=== PATIENT | male | born 1995 | race Caucasian/White ===

== ENCOUNTER 2021-09-21 09:54 | Emergency (ER) | payer OTHER, SELFPAY ==
[2021-09-21 09:59] VITALS: BP 136/80; PULSE 57; RESP 16; TEMP 36.2; O2SAT 98
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
[2021-09-21] MEDS: DACRIOSE EYE IRRIGATION 118 ML BOTTLE 200 ML LEFT EYE (10:20)
[2021-09-21] MEDS: TETRACAINE HCL 0.5% OPHTH SOLN 4 ML BTL 1 DROP LEFT EYE (10:20)
[2021-09-21] MEDS: FLUORESCEIN SOD 1 MG/STRIP EACH EYE (10:25)
== END 2021-09-21 10:40 | disposition home or self-care (01) ==
PROVIDERS: Emergency Provider Emergency Medicine
DX: T15.82XA Foreign body in other and multiple parts of external eye, left eye, initial encounter (principal)
CPT/HCPCS: 65220; 99283; A9270

== ENCOUNTER 2024-10-03 15:23 | Emergency (ER) | payer BC, SELFPAY ==
--- OUTSIDE RECORDS SUMMARY | 2024-10-03 15:25 | XMS_ITS | Clinical Summary ---
Author Organization [facility] Address [address] [place] [address] Care Team Providers Care Clinical Informatics Educator Name Role Phone Amira Ko MD Primary Care Provider [phone] Source Comments [facility],non-owned Affiliates and Associated Physician Practices is amultiple site organization consisting of ambulatory clinics and hospital sitesin [place], [place], [place] and [place]. This disclosure is being madepursuant to the Care Everywhere program and may not contain all information available regarding this patient. 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 Gender Identity Not on file Sexual Orientation Not on file Plan of Treatment Health Maintenance Due Date Last Done Comments HIV SCREENING 2008 HEPATITIS C SCREENING 12/08/2011 DTAP/TDAP/TD VACCINES (1 - Tdap) 2012 HEPATITIS B VACCINE (1 of 3 - 19+ 3-dose series) 2012 HPV VACCINE (1 - 3-dose SCDM series) 2020 COVID-19 VACCINE (1 - 2023-2 5 season) 2023 DEPRESSION SCREENING 03/20/2024 INFLUENZA VACCINE (#1) 2024 ZOSTER VACCINE (1 of 2) 12/13/2043 HIB VACCINE Aged Out No longer eligi ble based on patient's age to complete this topic MENINGOCOCCAL (Group B) VACC INE SHARED DECISION-MAKING Aged Out No longer eligibl e based on patient's age to complete this topic MENINGOCOCCAL GROUPS A/C/Y/W VACCINE Aged Out No longer eligible b ased on patient's age to complete this topic PNEUMOCOCCAL VACCINE Aged Out No long er eligible based on patient's age to complete this topic Care Teams Clinical Informatics Educator Relationship Specialty Start Date End Date Amira Ko MD [address] [place] [address] PCP - General 05/13/09
--- OUTSIDE RECORDS SUMMARY | 2024-10-03 15:25 | XMS_ITS | Data Portability ---
Author Organization [facility] MERIArlin Mota Address [address] [place] [address] Care Team Providers Care Pharmacy Picking Technician Name Role Phone MARINO MARTIN Primary Care Provider [phone] Assessment No assessment recorded. Plan of Treatment Reminders Order Date Submit Date Provider Last Modified By Organization Details Last Modified Time Details Appointments None recorded . Lab culture, stool 2016 017 [email or web address] [facility], [address] [place] [address], [address], [place], [address], 7 12:31:41 CMP, serum or plasma 2016 017 MALLORY [facility], [address], [address], [place], [address], 7 08:25:39 CBC 2016 017 MALLORY [facility], [address], [address], [place], [address], 7 08:25:38 lipid panel, serum 2016 017 MALLORY [facility], [address], [address], [place], [address], 7 08:25:39 amylase + lipase, serum 2016 017 MALLORY [facility], [address], [address], [place], [address], 7 08:25:40 Referral None recorded . Procedures None recorded . Surgeries None recorded . Imaging MRI, knee, w/o contrast 2016 017 [facility] ([facility]), [address] [place], [address], 7 17:53:15 XR, knee 2016 017 [facility] ([facility]), [address] [place], [address], 7 17:48:19 Medication Orders ketorola c 60 mg/2 mL intramus cular solution 2016 017 [email or web address] Not available 16:44:26 Flagyl 500 mg tablet 2016 017 [email or web address] [facility], [facility] [place], [address], 7 16:13:14 diclofen ac sodium 75 mg tablet,d elayed release 2016 017 [email or web address] [facility], [facility] [place], [address], 7 12:19:05 Patient TargetsNo targets recorded. Patient Instructions Encounter Date Encounter Id Patient Instructions Last Modified By Organization Details Last Modified Time 06/13/2016 [id number] Quitting Tobacco : Care Instructions [email or web address] Not available 06/13/2016 17:18:49 advised on etoh jnanney Not available 06/13/2016 17:16:33 01/04/2017 [id number] When You Want to Lose Weight: Care Instructions [email or web address] Not available 01/04/2017 16:23:41 Reason for Referral None Reported. Results Created Date Observation Date Name Description Value Unit Range Abnormal Flag Note LastModifiedBy Organization Detail LastModifiedTime 06/09/19 17 06/09/2016 CBC WBC 8.9 x10e3 /uL 3.4-10 .8 Not Available [facility] ([facility]) [address], [place], [address], 06/09/2016 08:25:38 06/09/19 17 06/09/2016 CBC RBC 5.14 x10e6 /uL 4.14-5 .80 Not Available [facility] ([facility]) [address] [place], [address], 06/09/2016 08:25:38 06/09/19 17 06/09/2016 CBC hemoglobin 14.2 g/dL 12.6-1 7.7 Not Available [facility] ([facility]) [address] [place], [address], 06/09/2016 08:25:38 06/09/19 17 06/09/2016 CBC hematocrit 42.0 % 37.5-5 1.0 Not Available [facility] ([facility]) [address] [place], [address], 06/09/2016 08:25:38 06/09/19 17 06/09/2016 CBC MCV 82 fL 79-97 Not Available [facility] ([facility]) [address] [place], [address], 06/09/2016 08:25:38 06/09/19 17 06/09/2016 CBC MCH 27.6 pg 26.6-3 3.0 Not Available [facility] ([facility]) [address] [place], [address], 06/09/2016 08:25:38 06/09/19 17 06/09/2016 CBC MCHC 33.8 g/dL 31.5-3 5.7 Not Available [facility] ([facility]) [address] [place], [address], 06/09/2016 08:25:38 06/09/19 17 06/09/2016 CBC RDW 14.2 % 12.3-1 5.4 Not Available [facility] ([facility]) [address] [place], [address], 06/09/2016 08:25:38 06/09/19 17 06/09/2016 CBC platelets 221 x10e3 /uL 150-37 9 Not Available [facility] ([facility]) [address] [place], [address], 06/09/2016 08:25:38 06/09/19 17 06/09/2016 CBC neutrophils 63 % Not Avai lable [facility] ([facility]) [address] [place], [address], 06/09/2016 08:25:38 06/09/19 17 06/09/2016 CBC lymphs 25 % Not Available [facility] ([facility]) [address] [place], [address], 06/09/2016 08:25:38 06/09/19 17 06/09/2016 CBC monocytes 6 % Not Availa ble [facility] ([facility]) [address] [place], [address], 06/09/2016 08:25:38 06/09/19 17 06/09/2016 CBC eos 6 % Not Available [facility] ([facility]) [address] [place], [address], 06/09/2016 08:25:38 06/09/19 17 06/09/2016 CBC basos 0 % Not Available [facility] ([facility]) [address] [place], [address], 06/09/2016 08:25:38 06/09/19 17 06/09/2016 CBC immature cells PT ESCORT Not Available [facility] ([facility]) [address] [place], [address], 06/09/2016 08:25:38 06/09/19 17 06/09/2016 CBC neutrophils (absolute) 5.5 x10e3 /uL 1.4-7. 0 Not Available [facility] ([facility]) [address] [facility] [place], [address], 06/09/2016 08:25:38 06/09/19 17 06/09/2016 CBC lymphs (absolute) 2.2 x10e3 /uL 0.7-3. 1 Not Available [facility] ([facility]) [address], [place], [address], 06/09/2016 08:25:38 06/09/19 17 06/09/2016 CBC monocytes(ab solute) 0.6 x10e3 /uL 0.1-0. 9 Not Available [facility] ([facility]) [address], [place], [address], 06/09/2016 08:25:38 06/09/19 17 06/09/2016 CBC eos (absolute) 0.6 x10e3 /uL 0.0-0. 4 above high normal Not Available [facility] ([facility]) [address], [place], [address], 06/09/2016 08:25:38 06/09/19 17 06/09/2016 CBC baso (absolute) 0.0 x10e3 /uL 0.0-0. 2 Not Available [facility] ([facility]) [address], [place], [address], 06/09/2016 08:25:38 06/09/19 17 06/09/2016 CBC immature granulocytes 0 % Not Available [facility] ([facility]) [address], [place], [address], 06/09/2016 08:25:38 06/09/19 17 06/09/2016 CBC immature grans (abs) 0.0 x10e3 /uL 0.0-0. 1 Not Available [facility] ([facility]) [address], [place], [address], 06/09/2016 08:25:38 06/09/19 17 06/09/2016 CBC NRBC PT ESCORT Not Available [facility] ([facility]) [address] [place], [address], 06/09/2016 08:25:38 06/09/19 17 06/09/2016 CBC hematology comments: PT ESCORT Not Available [facility] ([facility]) [address] [place], [address], 06/09/2016 08:25:38 06/09/19 17 06/09/2016 CMP, serum or plasm a glucose, serum 88 mg/dL 65-99 Not Available [facility] ([facility]) [address] [place], [address], 06/09/2016 08:25:39 06/09/19 17 06/09/2016 CMP, serum or plasm a BUN 14 mg/dL 6-20 Not Available [facility] ([facility]) [address] [place], [address], 06/09/2016 08:25:39 06/09/19 17 06/09/2016 CMP, serum or plasm a creatinine, serum 0.69 mg/dL 0.76-1 .27 below low normal Not Available [facility] ([facility]) [address] [place], [address], 06/09/2016 08:25:39 06/09/19 17 06/09/2016 CMP, serum or plasm a eGFR if nonafricn AM 135 mL/mi n/1.7 3 >59 Not Available [facility] ([facility]) [address] [place], [address], 06/09/2016 08:25:39 06/09/19 17 06/09/2016 CMP, serum or plasm a eGFR if africn AM 156 mL/mi n/1.7 3 >59 Not Available [facility] ([facility]) [address] [place], [address], 06/09/2016 08:25:39 06/09/19 17 06/09/2016 CMP, serum or plasm a BUN/creatini ne ratio 20 8-19 above high normal Not Available [facility] ([facility]) [address] [place], [address], 06/09/2016 08:25:39 06/09/19 17 06/09/2016 CMP, serum or plasm a sodium, serum 140 mmol/ L 134-14 4 Not Available [facility] ([facility]) [address] [place], [address], 06/09/2016 08:25:39 06/09/19 17 06/09/2016 CMP, serum or plasm a potassium, serum 3.9 mmol/ L 3.5-5. 2 Not Available [facility] ([facility]) [address] [place], [address], 06/09/2016 08:25:39 06/09/19 17 06/09/2016 CMP, serum or plasm a chloride, serum 98 mmol/ L 96-106 Not Available [facility] ([facility]) [address] [place], [address], 06/09/2016 08:25:39 06/09/19 17 06/09/2016 CMP, serum or plasm a carbon dioxide, total 25 mmol/ L 18-29 Not Available [facility] ([facility]) [address] [place], [address], 06/09/2016 08:25:39 06/09/19 17 06/09/2016 CMP, serum or plasm a calcium, serum 9.5 mg/dL 8.7-10 .2 Not Available [facility] ([facility]) [address] [place], [address], 06/09/2016 08:25:39 06/09/19 17 06/09/2016 CMP, serum or plasm a protein, total, serum 7.5 g/dL 6.0-8. 5 Not Available [facility] ([facility]) [address] [place], [address], 06/09/2016 08:25:39 06/09/19 17 06/09/2016 CMP, serum or plasm a albumin, serum 4.6 g/dL 3.5-5. 5 Not Available [facility] ([facility]) [address], [place], [address], 06/09/2016 08:25:39 06/09/19 17 06/09/2016 CMP, serum or plasm a globulin, total 2.9 g/dL 1.5-4. 5 Not Available [facility] ([facility]) [address] [place], [address], 06/09/2016 08:25:39 06/09/19 17 06/09/2016 CMP, serum or plasm a A/G ratio 1.6 1.2-2. 2 PLE ASE NOTE REFER ENCE RAINE ENAMORADO E Not Available [facility] ([facility]) [address] [place], [address], 06/09/2016 08:25:39 06/09/19 17 06/09/2016 CMP, serum or plasm a bilirubin, total 0.9 mg/dL 0.0-1. 2 Not Available [facility] ([facility]) [address] [place], [address], 06/09/2016 08:25:39 06/09/19 17 06/09/2016 CMP, serum or plasm a alkaline phosphatase, S 76 IU/L 39-117 Not Available [facility] ([facility]) [address] [place], [address], 06/09/2016 08:25:39 06/09/19 17 06/09/2016 CMP, serum or plasm a AST (SGOT) 45 IU/L 0-40 above high normal Not Available [facility] ([facility]) [address] [place], [address], 06/09/2016 08:25:39 06/09/19 17 06/09/2016 CMP, serum or plasm a ALT (SGPT) 103 IU/L 0-44 above high normal Not Available [facility] ([facility]) [address] [place], [address], 06/09/2016 08:25:39 06/09/19 17 06/09/2016 lipid panel , serum cholesterol, total 217 mg/dL 100-19 9 above high normal Not Available [facility] ([facility]) [address] [place], [address], 06/09/2016 08:25:39 06/09/19 17 06/09/2016 lipid panel , serum triglyceride s 206 mg/dL 0-149 above high normal Not Available [facility] ([facility]) [address] [place], [address], 06/09/2016 08:25:39 06/09/19 17 06/09/2016 lipid panel , serum HDL cholesterol 47 mg/dL >39 Not Available [facility] ([facility]) [address], [place], [address], 06/09/2016 08:25:39 06/09/19 17 06/09/2016 lipid panel , serum VLDL cholesterol cheryl 41 mg/dL 5-40 above high normal Not Available [facility] ([facility]) [address] [place], [address], 06/09/2016 08:25:39 06/09/19 17 06/09/2016 lipid panel , serum LDL cholesterol calc 129 mg/dL 0-99 above high normal Not Available [facility] ([facility]) [address] [place], [address], 06/09/2016 08:25:39 06/09/19 17 06/09/2016 lipid panel , serum comment: PT ESCORT Not Available [facility] ([facility]) [address] [place], [address], 06/09/2016 08:25:39 06/09/19 17 06/09/2016 lipid panel , serum LDL/HDL ratio 2.7 ratio _unit s 0.0-3. 6 LDL/H DL RATIO MEN WOMEN 1/2 AVG.R ISK 1.0 1.5 AVG.R ISK 3.6 3.2 2X AVG.R ISK 6.2 5.0 3X AVG.R ISK 8.0 6.1 Not Available [facility] ([facility]) [address], [place], [address], 06/09/2016 08:25:39 06/09/19 17 06/09/2016 amyla se + lipas e, serum amylase, serum 35 U/L 31-124 Not Available [facility] ([facility]) [address], [place], [address], 06/09/2016 08:25:40 06/09/19 17 06/09/2016 amyla se + lipas e, serum lipase, serum 31 U/L 0-59 Not Available [facility] ([facility]) [address], [place], [address], 06/09/2016 08:25:40 06/09/19 17 06/09/2016 cardi ovasc ular asses sment panel , serum interpretati on NOTE SUPPL EMENT REPOR T IS AVAIL ABLE. Not Available [facility] ([facility]) [address], [place], [address], 06/09/2016 08:25:40 06/09/19 17 06/09/2016 cardi ovasc ular asses sment panel , serum pdf image . Not Available [facility] ([facility]) [address], [place], [address], 06/09/2016 08:25:40 06/23/19 17 XR, knee No observ ation record ed. [email or web address] Not Available 08/2016 17:01:59 Result Notes None recorded. Problems Name Problem SNOMED Code Status Onset Date Resolution Date Notes Provider Name and Address Organization Details Recorded Time Painful mouth 576153568 Active Anabel Partida MA [facility], [facility] 6 10:45:22 Problem Notes None recorded. Medical Equipment None Reported. Allergies No known drug allergies Medications Name Sig Start Date Stop Date Status Note LastModified by Organization Details LastModified Time Keflex 500 mg capsule Take 1 capsule every 8 hours by oral route for 10 days. 2014 active Not Available Not Available Not Avai lable Flagyl 500 mg tablet Take 1 tablet every 8 hours by oral route for 10 days. 01/04 completed Not Available Not Available Not Available gabapentin 300 mg capsule Take 1 capsule 3 times a day by oral route for 30 days. 2014 active Not Available Not Available Not Avai lable diclofenac sodium 75 mg tablet,jessica yed release Take 1 tablet twice a day by oral route for 30 days. 08/30 completed Not Available Not Available Not Available ketorolac 60 mg/2 mL intramuscul ar solution Inject 2 mL by intramusc ular route. 2016 active Not Available Not Available Not Avai lable Diflucan 200 mg tablet Take 1 tablet every 72 hours by oral route as directed. 2018 active Not Available Not Available Not Avai lable Vitals Date Recorded Body weight Body height Body mass index (BMI) Oxygen saturation Oxygen saturation in Arterial blood by Pulse oximetry Heart rate Systolic And Diastolic Provider Name and Address Organization Details Last Updated DateTime 7 612788. 72 g 187.96 cm 54.4 kg/m2 97 % 97 % 66 /min 132/86 mm[Hg] Anabel Partida MA [facility] 7 14:17:47 Date Recorded Body height Body weight Body mass index (BMI) Oxygen saturation Oxygen saturation in Arterial blood by Pulse oximetry Heart rate Systolic And Diastolic Provider Name and Address Organization Details Last Updated DateTime 7 187.96 cm 856400. 61 g 54.5 kg/m2 98 % 98 % 112 /min 138/90 mm[Hg] Carley Trinh MA [facility] 7 16:51:38 Date Recorded Body height Body mass index (BMI) Body weight Oxygen saturation Oxygen saturation in Arterial blood by Pulse oximetry Heart rate Systolic And Diastolic Provider Name and Address Organization Details Last Updated DateTime 187.96 cm 55 kg/m2 532462. 28 g 97 % 97 % 79 /min 124/68 mm[Hg] Marino Martin PA-C Attn: Shanelle krishnan,[address] , [place], [address], [facility] 7 12:18:23 Date Recorded Body height Body mass index (BMI) Body weight Oxygen saturation Oxygen saturation in Arterial blood by Pulse oximetry Heart rate Systolic And Diastolic Provider Name and Address Organization Details Last Updated DateTime 187.96 cm 55.1 kg/m2 001921. 13 g 97 % 97 % 78 /min 120/80 mm[Hg] Sigrid Chacon MA [facility] 7 16:15:09 Social History None recorded. Functional Status None recorded. Mental Status None recorded. Family History Nothing Reported. Medical History No medical history recorded. Past Encounters Encounter ID Performer Location Encounter Start Date Encounter Closed Date Diagnosis/Indication Diagnosis SNOMED-CT Code Diagnosis ICD10 Code Diagnosis Note [id number] Marino Martin PA-C [facility] [address] [place] [address] 04/11/2014 10:53:00 04/11/2014 11:39:50 Painful mouth [id number] Marino Martin PA-C [facility] [address] [place] [address] 07/28/2015 10:41:27 08/21/2015 11:25:27 [id number] JERALD Danielle [address] [place] [address] 06/07/2016 14:07:51 06/07/2016 14:44:30 Liver enzymes level above reference range 407094717 R74.8 [id number] JERALD Danielle [address] [place] [address] 06/13/2016 16:44:36 06/13/2016 17:48:19 Pain in left knee 3391689911 26289 M25.562 Painful mouth 035015316 K13.79 [id number] Christian Canseco MD [facility] [address] [place] [address] 08/30/2016 11:33:24 08/30/2016 14:53:31 Acute diarrhea 576065059 R19.7 [id number] Christian Canseco MD [facility] [address] [place] [address] 01/04/2017 15:43:04 01/04/2017 17:53:14 Pain in left knee 9198676494 91638 M25.562 Health Concerns Section Related Observation LastModified by Organization Detai ls LastModified Time None Recorded Concern Status LastModified by Organization Details LastModified Time None Recorded Advance Directives Directive None Recorded Payers Insurance Date Sequence Insurance Name Policy Number Policy Rojas Covered Member ID Rojas Member ID Guarantor Name 01/03/2017 1 [place] [facility] [place] [id number] [facility]2017 [facility] PLAN [facility] Notes Date Note Type Note Provider Name and Address Organization Details Recorded Time 06/07/2016 text/html went to ER for something and found out his liver enzymes were high. Marino Martin PA-C Attn: Accounting,[address] [facility], [place], [address], [facility] 06/07/2016 14:32:55 06/13/2016 text/html blood work and knee pain Marino Martin PA-C Attn: Accounting,[address] [place], [address], [facility] 06/13/2016 17:19:31 08/30/2016 text/html no nausea vomiting. every time he eats. 45 minutes after eating. no food relation. just got back from [place]. started a few days later. [facility] Marino Martin PA-C Attn: Accounting,[address] [place], [address], [facility] 08/30/2016 12:37:10 01/04/2017 text/html knee pain lft knee worse. has not lost weight. Marino Martin PA-C Attn: Accounting,[address] [facility], [place], [address], [facility] 01/04/2017 16:25:26
--- OUTSIDE RECORDS SUMMARY | 2024-10-03 15:25 | XMS_ITS | Data Portability ---
Author Organization [place] [facility] Address [address] [facility] [place] [address] Assessment Encounter Date Assessment Date Assessment LastModified by Organization Details LastModified Time 07/14/2011 07/14/2011 injury 5th finger . official xray reported normal no FX gmalur Not available 07/18/2011 00:37:38 10/24/2011 10/24/2011 Adoloscent with morbid Obesity says he is doing daily exercise, adv to moniter is intake. gmalur Not available 10/25/2011 00:09:42 Plan of Treatment Reminders Order Date Submit Date Provider Last Modified By Organization Details Last Modified Time Details Appointments None recorded. Lab urinalysis, dipstick [address], [place], [address], 3 03:30:32 hemoglobin, fingerstick 2011 [address], [place], [address], 3 03:30:34 lipid panel 2011 012 MALLORY Not available 3 03:30:33 glucose, serum 2011 012 MALLORY Not available 3 03:30:33 hgb A1C w/ glucose 2011 012 MALLORY Not available 3 03:30:34 ALT (SGPT) 2011 012 MALLORY Not available 3 03:30:34 AST (SGOT) 2011 012 MALLORY Not available 3 03:30:34 Referral None recorded. Procedures None recorded. Surgeries None recorded. Imaging None recorded. Medication Orders None recorded. Patient TargetsNo targets recorded. Patient Instructions Encounter Date Encounter Id Patient Instructions Last Modified By Organization Details Last Modified Time 07/14/2011 [id number] use splint prn ,ice and ibuprofen gmalur Not available 07/18/2011 00:37:38 10/24/2011 [id number] I am concerned about his wt. gmalur Not available 10/25/2011 00:20:52 Reason for Referral None Reported. Results Created Date Observation Date Name Description Value Unit Range Abnormal Flag Note LastModifiedBy Organization Detail LastModifiedTime 10/24/19 12 10/24/2011 hemog gilmarmichelet , joaohadley rstic k HGB 13.5 Not Available [facility] [address] [facility] [address] [address], [place], [address], 10/24/2011 18:02:08 10/24/19 12 10/24/2011 urina lysis , dipst ick Blood negati ve Not Available [facility] [address] [facility] [address] [address], [place], [address], 10/24/2011 17:58:34 10/24/19 12 10/25/2011 lipid panel cholesterol, total 227 mg/dL 125-17 0 high Not Available [employer] [address] [address] [place], [address], 10/25/2011 10:00:10 10/24/19 12 10/25/2011 lipid panel HDL cholesterol 44 mg/dL 31-65 normal Not Available [facility] [employer] [facility] [address] [place], [address], 10/25/2011 10:00:10 10/24/19 12 10/25/2011 lipid panel triglyceride s 202 mg/dL 38-152 high Not Available [employer] [address] [place], [address], 10/25/2011 10:00:10 10/24/19 12 10/25/2011 lipid panel LDL-choleste rol 143 mg/dL _(cheryl c) <110 high simran able range <100 mg/dL for patie nts with CHD or diabe francoise and <70 mg/dL for diabe tic patie nts with known heart disea se. Not Available [facility] [address] [address] [place], [address], 10/25/2011 10:00:10 10/24/19 12 10/25/2011 lipid panel chol/HDLC ratio 5.2 (calc ) < or = 5.0 high Not Available [facility] [address] [address] [place], [address], 10/25/2011 10:00:10 10/24/19 12 10/25/2011 lipid panel non-HDL cholesterol 183 mg/dL _(cheryl c) targe t for non-H DL kristy stero l IS 30 mg/dL highe r than LDL kristy stero l targe t. Not Available [facility] [address] [address] [place], [address], 10/25/2011 10:00:10 10/24/19 12 10/25/2011 gluco se, plasm a glucose, random (P) 87 mg/dL <140 normal Not Available [address], [address], 10/25/2011 10:00:11 10/24/19 12 10/25/2011 hemog lobin A1C hemoglobin A1C 5.5 %_of_ total _HGB <5.7 normal decre ased risk of diabe francoise <5.7 decre ased risk of diabe francoise 5.7-6 .0 incre ased risk of diabe francoise 6.1-6 .4 highe r risk of diabe francoise > or = 6.5 consi stent with diabe francoise [facility] in diabe francoise-2 010. diabe francoise care, 33(sanchez pp 1): S1-S6 1,201 0. Not Available [facility] [address] [address] [place], [address], 10/25/2011 10:00:11 10/24/19 12 10/25/2011 ALT (SGPT ) ALT 68 U/L 8-46 high Not Available [facility] [address] [place], [address], 10/25/2011 10:00:12 10/24/19 12 10/25/2011 AST (SGOT ) AST 34 U/L 12-32 high Not Available [facility] [address] [place], [address], 10/25/2011 10:00:12 07/16/19 12 07/13/2011 imagi ng/di agnos tic resul t No observ ation record ed. MALLORY Not Available 2012 03:29:28 Result Notes None recorded. Problems Name Problem SNOMED Code Status Onset Date Resolution Date Notes Provider Name and Address Organization Details Recorded Time Contusion of finger [id number] Active Not Available [facility] 3 03:02:31 Obesity [id number] Active 010 Not Available [facility] 3 03:02:31 Problem Notes None recorded. Medical Equipment None Reported. Allergies No known drug allergies Medications Not known to be on any medication Vitals Date Recorded Body height Body weight Body mass index (BMI) Respiratory rate Body temperature Heart rate Systolic And Diastolic Provider Name and Address Organization Details Last Updated DateTime 2 182.88 cm 898233. 46192 g 46.5 kg/m2 16 /min 98.5 [degF] 84 /min 128/78 mm[Hg] KENDELL Martinez [address] [place] [address], [id number] [place] [address] [facility], 2 14:46:58 Date Recorded Body height Body weight Body mass index (BMI) Provider Name and Address Organization Details Last Updated DateTime 10/23/2009 181.61 cm 277568.711 g 41.3 kg/m2 Estephania Petersen [facility], 07/23/2013 14:01:58 Date Recorded Body height Body weight Body mass index (BMI) Respiratory rate Heart rate Systolic And Diastolic Provider Name and Address Organization Details Last Updated DateTime 2 182.88 cm 880961. 41129 g 46.9 kg/m2 20 /min 74 /min 120/78 mm[Hg] Imani Montano [facility], 2 17:50:26 Social History Question Answer Notes LastModified by Organizat ion Details LastModified Time Tobacco Smoking Status Never Smoker Imani Montano vincent, [facility], 10/24/2011 17:50:26 Animal Exposure? No Information not available 10/24/2011 What Type Of Validation Manager Do You Use? None Information not available 10/24/2011 Are There Any Guns Present In Your Home? No Information not available 10/24/2011 What Is Your Home Situation? Mother Information not available 10/24/2011 Do You Use Insect Repellent Routinely? Yes Information not available 10/24/2011 What Is Your Parents' Marital Status? Unmarried Information not available 10/24/2011 What Is The Name Of Your School? [employer] Information not available 10/24/2011 Do You Use Your Seat Belt Or Car Seat Routinely? Yes Information not available 10/24/2011 Do You Have Any Siblings? 1 Brother Information not available 10/24/2011 Do You Have Smoke And Carbon Monoxide Detectors In Your Home? Yes Information not available 10/24/2011 Are You Passively Exposed To Smoke? Yes Mom Smokes Information not available 10/24/2011 What Types Of Sporting Activities Do You Participate In? Football Information not available 10/24/2011 Do You Use Sunscreen Routinely? No Information not available 10/24/2011 Year In School 12 Informat[employer] n not available 10/24/2011 Sex: Unknown Functional Status Question Answer Note LastModified by Organizat ion Details LastModified Time What is your exercise level? Occasional Information not available 10/24/2011 Mental Status None recorded. Family History Nothing Reported. Medical History Condition Response Diabetes N Other Developmental Delay N Bedwetting N ER or UC Visits N Asthma / Wheezing N Skin problems N Frequent Ear Infections N Nasal Allergies N Hospitalizations N Frequent Headaches N ADD or ADHD N Broken bones N Allergies N ear or hearing problems N Sleep Problems / Snoring N Concerns with Hearing or Vision N Constipation N Murmur / Cardiac N Albuterol / Nebulizer N Serious Injuries N History of UTI N Immunizations Vaccine Type Date Status Note Provider Nam e and Address Organization Details Recorded Time Hep A, unspecified formulation 0 completed Not Available [facility] 02/02/2011 06:13:51 Hep A, ped/adol, 2 dose 9 completed Estephania Petersen null, [place] [facility], 07/23/2013 14:01:57 varicella 5 completed Este[place] [facility], 07/23/2013 14:01:57 meningococcal ACWY, unspecified formulation 9 completed Estephania Petersen null, [place] [facility], 07/23/2013 14:01:57 Influenza, live, trivalent, intranasal 9 completed Estephania Petersen null, [place] [facility], 07/23/2013 14:01:57 Tdap 9 completed [place]ste[place] [facility], 07/23/2013 14:01:57 varicella 9 completed [place] [facility], 07/23/2013 14:01:57 OPV 5 completed [place] [facility], 07/23/2013 15:54:38 Hep B, unspecified formulation 4 completed [place] [facility], 07/23/2013 15:54:38 OPV 8 completed [place] [facility], 07/23/2013 15:54:38 MMR 8 completed [place] [facility], 07/23/2013 15:54:38 DTaP 8 completed [place] [facility], 07/23/2013 15:54:38 DTP 5 completed [place] [facility], 07/23/2013 15:54:38 OPV 5 completed [place] [facility], 07/23/2013 15:54:38 Hep B, unspecified formulation 4 completed [place] [facility], 07/23/2013 15:54:38 MMR 5 completed [place] [facility], 07/23/2013 15:54:38 Hib, unspecified formulation 5 completed [place] [facility], 07/23/2013 15:54:38 OPV 5 completed [place] [facility], 07/23/2013 15:54:38 DTP 5 completed [place] [facility], 07/23/2013 15:54:38 DTP 5 completed [place] [facility], 07/23/2013 15:54:38 Hib, unspecified formulation 5 completed [place] [facility], 07/23/2013 15:54:38 Hep B, unspecified formulation 5 completed [place] [facility], 07/23/2013 15:54:38 Hib, unspecified formulation 5 completed [place] [facility], 07/23/2013 15:54:38 DTP-Hib 6 completed [place] [facility], 07/23/2013 15:54:38 Meningococcal MCV4O 2 completed Not Available [facility] 04/06/2019 02:12:15 HPV, quadrivalent 2 completed Not Available [facility] 04/06/2019 02:11:55 Past Encounters Encounter ID Performer Location Encounter Start Date Encounter Closed Date Diagnosis/Indication Diagnosis SNOMED-CT Code Diagnosis ICD10 Code Diagnosis Note [id number] [facility] [address] [place] [address],[address] [place] [address] 10/23/2009 15:12:04 10/23/2009 15:14:43 [id number] Am[facility] [address] [place] [address],[address] [place] [address] 07/14/2011 14:36:04 07/18/2011 14:21:37 [id number] Amira Ko MD [facility] [address] 10/24/2011 17:18:37 10/26/2011 11:56:46 Health Concerns Section Related Observation LastModified by Organization Detai ls LastModified Time None Recorded Concern Status LastModified by Organization Details LastModified Time None Recorded Advance Directives Directive None Recorded Payers Insurance Date Sequence Insurance Name Policy Number Policy Rojas Covered Member ID Rojas Member ID Guarantor Name 11/02/2013 1 [facility] (MEDICAID HMO) [facility] [id number] Karmen Amatoideth 11/02/2013 1 [place] [employer] [facility] [id number] Karmen Lugoth Notes Date Note Type Note Provider Name and Address Organization Details Recorded Time 07/14/2011 text/html To [facility] ER for fx to right pinky finger. Has a splint on it. Injured finger 2 weeks prior to going to ER. [facility] 07/18/2011 00:37:46
--- OUTSIDE RECORDS SUMMARY | 2024-10-03 15:26 | XMS_ITS | Clinical Summary ---
Author Organization [facility] Address [address] [place] [address] Phone Care Team Providers Care Cellophane Press Operator Name Role Phone Billy Martin Primary Care Provider [phone] Allergies No known active allergies Medications sulfamethoxazole -trimethoprim DS (BACTRIM DS, SEPTRA DS) 800-160 MG Tablet Take 1 Tab by mouth 2 times daily. Active HYDROcodone-acet aminophen (NORCO) 5-325 MG Tablet Take 1 Tab by mouth every 4 hours as needed for Pain. Active Active Problems No known active problems Social History Tobacco Use Types Packs/Day Years Used Date Smoking Tobacco: Never Assessed Smokeless Tobacco: Current Chew Alcohol Use Standard Drinks/Week Comments Yes 0 (1 standard drink = 0.6 oz pur e alcohol) Sex and Gender Information Value Date Recorded Sex Assigned at Not on file Legal Sex Male 10:43 PM CDT Gender Identity Not on file Sexual Orientation Not on file Last Filed Vital Signs Vital Sign Reading Time Taken Comments Blood Pressure 131/81 07/27/2015 7:43 PM CDT Pulse - - Temperature 37.2 C (98.9 F) 07/27/2015 7:14 PM CDT Respiratory Rate 15 07/27/2015 7:43 PM CDT Oxygen Saturation 97% 07/27/2015 7:43 PM CDT Inhaled Oxygen Concentration - - Weight 185.1 kg (408 lb) 07/27/2015 7:14 PM CDT Height 185.4 cm (6' 1) 07/27/2015 7:14 PM CDT Body Mass Index 53.83 07/27/2015 7:14 PM CDT Plan of Treatment Not on file Insurance MEDICAID [place] Care Teams Cellophane Press Operator Relationship Specialty Start Date End Date Billy Martin [address] [place] [address] PCP - General Physician Deboner 07/27/15
--- OUTSIDE RECORDS SUMMARY | 2024-10-03 15:30 | XMS_ITS | Clinical Summary ---
Author Organization [facility] Address [address] [place] [address] Care Team Providers Care Insurance Defense Attorney Name Role Phone Ericka Hollingsworth Primary Care Provider [phone] Allergies No known active allergies Medications No known medications Social History Tobacco Use Types Packs/Day Years Used Date Smoking Tobacco: Never Smokeless Tobacco: Current Chew Sex and Gender Information Value Date Recorded Sex Assigned at Not on file Legal Sex Male 5:53 PM TANK CHARGER Gender Identity Not on file Sexual Orientation Not on file Last Filed Vital Signs Vital Sign Reading Time Taken Comments Blood Pressure 144/86 03/22/2023 12:31 AM TANK CHARGER Pulse 85 03/22/2023 12:31 AM TANK CHARGER Temperature 36.8 C (98.2 F) 03/22/2023 12:31 AM TANK CHARGER Respiratory Rate 18 03/22/2023 12:3 1 AM TANK CHARGER Oxygen Saturation 95% 03/22/2023 12: 45 AM TANK CHARGER Inhaled Oxygen Concentration - - Weight 162.8 kg (358 lb 12.8 oz) 2023 12:31 AM TANK CHARGER Height 188 cm (6' 2) 03/22/2023 12:31 AM TANK CHARGER Body Mass Index 46.07 03/22/2023 12:31 AM TANK CHARGER Plan of Treatment Health Maintenance Due Date Last Done Comments Annual Physical 1996 HPV Vaccines (2 - Male 3-dose series) 11/21/2011 10/24/2011 Hepatitis C 12/13/2011 DTaP, Tdap and Td Vaccines (6 - Td or Tdap) 08/23/2018 08/23/2008, 01/27/1998, 05/11/1995, Additional history exists COVID-19 Vaccine ( season) 2023 Hepatitis B Vaccines Completed 01/31/1995, 01/11/1994, 1993 Meningococcal Vaccine Completed 10/24/2011, 009 Meningococcal B Vaccine Aged Out No l onger eligible based on patient's age to complete this topic Pneumococcal Vaccine: Pediatrics (0 to 5 Years) and At-Risk Patients (6 to 49 Years) Aged Out No longer eligible based on patient's age to complete this topic RSV Immunizations Under 20 Months Aged Out No longer eligible based on patient's age to complete this topic Care Teams Insurance Defense Attorney Relationship Specialty Start Date End Date Ericka Hollingsworth PA [address] [place] [id number] PCP - General PHYSICIAN TAVERN KEEPER 03/22/23
--- OUTSIDE RECORDS SUMMARY | 2024-10-03 15:30 | XMS_ITS | Encounter Summary ---
Author Organization [facility] Address [address] [place] [address] Care Team Providers Care Fiberglasser Name Role Phone Ericka Hollingsworth Primary Care Provider [phone] Encounter Details Date Type Department Care Team (Late st Contact Info) Description 08/25/2018 Abstract [facility] CONVERSION [address] [place] [address] , Generic Conversion, Social History Tobacco Use Types Packs/Day Years Used Date Smoking Tobacco: Never Assessed Sex and Gender Information Value Date Recorded Sex Assigned at Not on file Legal Sex Male 5:53 PM WIRE WEAVER CLOTH Gender Identity Not on file Sexual Orientation Not on file documented as of this encounter Plan of Treatment Not on file documented as of this encounter Visit Diagnoses Not on filedocumented in this encounter Care Teams Fiberglasser Relationship Specialty Start Date End Date Ericka Hollingsworth PA [address] [place] [address] PCP - General PHYSICIAN HR SHARED SERVICES CONSULTANT 03/22/23 documented as of this encounter
[2024-10-03 15:36] VITALS: BP 147/85; PULSE 83; RESP 16; TEMP 36.7; O2SAT 97
--- NOTE | 2024-10-03 16:00 | ED_ITS ---
HPI - Skin/Abscess/Foreign Bdy General Chief complaint: Skin/Abscess/Foreign Body Stated complaint: left leg/possible bug bite Time Seen by Provider: 10/03/24 15:38 Source: patient and RN notes reviewed Mode of arrival: ambulatory Limitations: no limitations History of Present Illness HPI narrative: Patient presents today complaining of possible insect bites to the left lateral calf that were sustained 2 days ago, possibly from working in his garden. States the redness and swelling to the leg has worsened today. Currently rates the discomfort 4/10. He has wrap the leg to protect it from getting wet at work , applied antibiotic ointment and cortisone without relief. Related Data Allergies Allergy/AdvReac Type Severity Reaction Status Date / Time No Known Allergies Allergy Verified 10/03/24 15:38 [facility] Past Medical History Medical History No active medical problems Surgical History Surgical History No pertinent past surgical history Social History Social History Smoking status: Never smoker Comments At time of signature, I have reviewed and agree with nursing past medical, surgical, social and family history unless otherwise noted. Please see nursing chart for further information. There is no relevant family history pertinent to the presenting complaint Exam Narrative: GENERAL: Well-appearing, well-nourished, and in no acute distress. HEAD: Normocephalic, atraumatic. EYES: EOMI. No redness or drainage. Conjunctivae normal. ENT: Mucous membranes pink and moist. NECK: Normal AROM. CHEST: No respiratory distress. EXTREMITIES: Normal range of motion. No edema. SKIN: Warm, dry. Capillary refill normal. Normal skin turgor. Mild swelling to the left lateral calf extending to the ankle with 2+ pitting edema of the ankle. Five tiny vesicles in a cluster to the center of the lateral calf with surrounding erythema. Tender to palpation. Distal sensation intact. Capillary refill normal. Full range of motion of the ankle and knee. NEURO: No focal deficits. Alert and oriented x3. Gait steady. PSYCH: Normal affect. No signs of depression or anxiety. Course Course Level of Care: Express Care Visit Vital Signs Vital signs: Vital Signs Temperature 98.1 F 10/03/24 15:36 Pulse Rate 83 10/03/24 15:36 Respiratory Rate 16 10/03/24 15:36 Blood Pressure 147/85 H 10/03/24 15:36 Pulse Oximetry 97 10/03/24 15:36 Oxygen Delivery Room Air 10/03/24 15:36 Temperature 98.1 F 10/03/24 15:36 Pulse Rate 83 10/03/24 15:36 Respiratory Rate 16 10/03/24 15:36 Blood Pressure 147/85 H 10/03/24 15:36 Pulse Oximetry 97 10/03/24 15:36 Oxygen Delivery Room Air 10/03/24 15:36 Reviewed MDM - Skin/Abscess/Foreign Bdy MDM Narrative Medical decision making narrative: 28-year-old male patient complaining of insect bites, redness, tenderness, and swelling to the left lateral calf area that has been present for 2 days, worsening since onset. He has tried some topical cortisone and antibiotic ointment and wrapping the calf without improvement of symptoms. No history of staph, MRSA, abscess. He will be treated for cellulitis from insect bites with a course of Keflex. Recommended not to continue to wrap the calf. Vital signs stable. Anticipatory guidance given. Differential Diagnosis Differential diagnosis: Likely abscess of skin or subcutaneous tissue, cellulitis, insect bites and impetigo Critical Care Time Critical Care Time Critical Care Time: No Discharge Plan Discharge Clinical Impression: Cellulitis and abscess of left leg Insect bite Qualifiers: Encounter type: initial encounter Site of insect bite: lower leg Laterality: left Qualified Code(s): S80.862A - Insect bite (nonvenomous), left lower leg, initial encounter Patient Disposition: Home Condition: Stable Instructions: Cellulitis (ED), Insect Bite or Sting (ED) Additional Instructions: Please start the Keflex as prescribed and take until gone. Wash with soap and water daily. If you notice worsening symptoms such as red streaking up your leg or fever greater than 100.3, please go to the ER immediately for further evaluation and treatment. Your blood pressure was elevated above 120/80 today at Urgent Care. This puts you above the threshold for follow up. Please schedule a followup visit with your personal physician as soon as possible, for further evaluation and treatment. Even blood pressure exceeding 120/80 may indicate pre-hypertension. Patient Language: Spanish Prescriptions: New cephalexin 500 mg capsule 500 mg PO Q6H 7 Days Qty: 28 0RF Follow-up/Referrals: PHYSICIAN,BICYCLE MESSENGER [Primary Care Provider] - Stand Alone Forms: Work/School Release IP Time of Disposition: 15:54
== END 2024-10-03 16:00 | disposition home or self-care (01) ==
PROVIDERS: Emergency Provider Nurse Practitioner
DX: L03.116 Cellulitis of left lower limb (principal); L02.416 Cutaneous abscess of left lower limb; S80.862A Insect bite (nonvenomous), left lower leg, initial encounter; W57.XXXA Bitten or stung by nonvenomous insect and other nonvenomous arthropods, initial encounter
CPT/HCPCS: 99213; G0463